=== PATIENT | female | born 2000 | race Caucasian/White ===

== ENCOUNTER 2022-08-23 14:41 | Emergency (ER) | payer OTHER, SELFPAY ==
[2022-08-23 14:47] VITALS: BP 112/91; PULSE 72; RESP 18; TEMP 37.1; O2SAT 97; BMI 31.5
--- NOTE | 2022-08-23 15:39 | CRLHL7_ITS ---
For Patients: As a result of the Century Cures Act, medical imaging exams and procedure reports are released immediately into your electronic medical record. You may view this report before your referring provider. If you have questions, please contact your health care provider. INDICATION: PRESYNCOPE TECHNIQUE: Chest 1 view. COMPARISON: None. FINDINGS: Cardiovascular and mediastinum: Heart size and vasculature are normal in caliber and appearance. Mediastinum is within normal limits. Lungs and pleural space: Lungs are clear. No sign of infiltrate or mass. No sign of pleural effusion. No pneumothorax. Bones and soft tissues: No significant findings. IMPRESSION: Unremarkable chest. Dictated by: Tamir Fajardo MD @ 08/23/2022 16:20:28 (Electronically Signed)
[2022-08-23 15:54] LABS: Appearance Urine Clear (Clear); Bilirubin Urine Negative (Negative); Blood Urine Negative (Negative); Color Urine Yellow (Yellow); Glucose Urine Negative (Negative); Ketones Urine Negative (Negative); Leukocyte Esterase Urine Negative (Negative); Nitrite Urine Negative (Negative); Protein Urine Negative (Negative); Urobilinogen Urine 0.2 (0.2-1.0); pH Urine 7.5 (5.0-8.5)
--- NOTE | 2022-08-23 15:57 | ED.GENADULT ---
HPI - General Adult General Chief complaint: Dizziness/Vertigo Stated complaint: Dizzy Feeling Faint Time Seen by Provider: 08/23/22 14:43 History of Present Illness HPI narrative: 22-year-old young woman presenting to the emergency department with concern of near syncope. She today was trying to participate in a theater production and became somewhat lightheaded, was stumbling and had trouble articulating. Further has had a headache to some degree over the last couple of days. Notes herself to have a history of ?migraines?. This has never been formally diagnosed as migraine though mother has migraines. She does not describe scotoma. Headaches can be variable. She does not wake regularly with headaches. No discoordination typically. More lightheaded over the last couple of days just feeling generally unwell had to skip some classes. Having trouble focusing. She has found herself going to the bathroom on multiple occasions thinking that she needs to have a bowel movement defecating maybe only a small amount of diarrhea or loose stool. This is often accompanied by nausea as well. Triggered also by eating or drinking. In mid 2020 she went to a [place] where had forgotten to take ADD medications in the form of Concerta. Did drink alcohol. Woke with a terrible hangover. Struggled with GI symptoms around that time as well restarting Concerta resulted in worsening of the symptoms. Then in July of 2021 experienced COVID with predominant GI symptoms. She has never vomited with any of this but apparently had a good deal of diarrhea. Has never felt quite normal since. She has presumed some degree of anxiety potentially related and has attended talk therapy but increasing concerned now with exacerbation as above. no fam hx of dysrhythmia or sudden cardiac , denies fam hx of inflammatory bowel disorders Related Data Allergies Allergy/AdvReac Type Severity Reaction Status Date / Time No Known Drug Allergies Allergy Verified 08/23/22 14:47 Review of Systems Status of ROS: Reports: 10 or more systems reviewed and unremarkable except as noted in History and below [facility] PFS Social History Smoking Status: Never smoker Do you use any of these nicotine containing products: None Second hand tobacco smoke exposure: Yes How often do you have a drink containing alcohol: never How often do you have six or more drinks on one occasion: Never AUDIT-C Alcohol total score: 0 Non-prescribed substance use: denies use service: No Exam Narrative: Exam Narrative: Very pleasant. thoughtful. carefully and casually groomed. tearful. head atraumatic.observed to be moving more slowly but without evidence of discoordination. cn 2-12 appear to be intack. pupils equal and brisk. no nystagmus evident. oropharynx a little sticky. neck supple with strong and equal carotid pulse. lungs are clear. abdomen overweight, nt. well-perfused peripherally without edema and extremities appear to be with good strength and without sensory deficits. skin is warm and dry without evidence of rash. Const: Vital Signs, click to edit/add: Vital Signs - 24 hr 08/23/22 14:47 08/23/22 18:19 Temperature 98.7 F 98.0 F Pulse Rate [Pulse Oximeter] 72 69 Respiratory Rate 18 16 Blood Pressure [Le ft Upper Arm] 112/91 H Pulse Oximetry 97 98 Oxygen Delivery Me thod Room Air Room Air Documenting provider has reviewed patient's vital signs: yes Course Vital Signs Vital signs: Initial Vital Signs Temperature 98.7 F 08/23/22 14:47 Temperature Source Temporal Artery Scan 08/23/22 14:47 Pulse Rate 72 08/23/22 14:47 Pulse Rhythm 08/23/22 14:47 Respiratory Rate 18 08/23/22 14:47 Blood Pressure 112/91 H 08/23/22 14:47 Blood Pressure Mean 98 08/23/22 14:47 Blood Pressure Position Supine 08/23/22 14:47 Pulse Oximetry 97 08/23/22 14:47 Oxygen Delivery Method 08/23/22 14:47 Vital Signs Temperature 98.7 F 08/23/22 14:47 Pulse Rate 72 08/23/22 14:47 Respiratory Rate 18 08/23/22 14:47 Blood Pressure 112/91 H 08/23/22 14:47 Pulse Oximetry 97 08/23/22 14:47 Oxygen Delivery Method 08/23/22 14:47 Temperature 98.0 F 08/23/22 18:19 Pulse Rate 69 08/23/22 18:19 Respiratory Rate 16 08/23/22 18:19 Blood Pressure 112/91 H 08/23/22 14:47 Pulse Oximetry 98 08/23/22 18:19 Oxygen Delivery Method 08/23/22 18:19 Medical Decision Making MDM Narrative Medical decision making narrative: will evaluate for cardiac or electrolyte/metabolic causes for lightheadedness. tsh and esr with consideration of bowel issues. monitor on quality assurance monitor for potential arrhythmia. i expect all labs to be normal. this is only initial screening. marked episodes of anxiety anticipating blood draw and could not tolerate idea of iv placement. eventually able to collect blood. cxr by my read wnl with normal cardiac [place]. orthostatics were normal and was asymptomatic departed ER prior to resulting of tsh and esr, the latter of which was normal. Lab Data Lab results reviewed: Yes I reviewed the patient's lab results Labs: Lab Results 08/23/22 08/23/22 08/23/22 Range/Units 15:38 16:16 17:52 WBC 9.00 (4.50-11.00) K/uL RBC 4.56 (4.00-5.20) m/uL Hgb 12.2 (12.0-16.0) gm/dL Hct 37.1 (33.0-51.0) % MCV 81 (80-100) fL MCH 27 (26-34) pg MCHC 33 (32-36) gm/dL RDW Coeff of Estefany 13.8 (11.5-15.5) % Plt Count 384 (140-440) K/uL Neut % (Auto) 68.0 (42.0-72.0) % Lymph % (Auto) 25.2 (20-44) % [place] % (Auto) 6.3 (0.0-11.0) % Eos % (Auto) 0.1 (0.0-7.0) % Baso % (Auto) 0.3 (0.0-3.0) % Neut # (Auto) 6.11 (1.7-7.0) K/uL Lymph # (Auto) 2.27 (0.90-2.90) K/uL [place] # (Auto) 0.60 (0.00-0.90) K/UL Eos # (Auto) 0.01 (0.00-0.50) K/uL Baso # (Auto) 0.03 (0.00-0.30) K/uL ESR (2-20) mm/hr Total Bilirubin 0.5 (0.1-1.5) mg/dL Direct Bilirubin 0.2 (0.0-0.5) mg/dL AST 21 (12-35) U/L ALT 20 (4-35) U/L Alkaline Phosphatase 96 (40-150) U/L Troponin I < 0.01 L (0.01-0.04) ng/mL C-Reactive Protein 0.6 (0.5-1.0) mg/dL NT-Pro-B Natriuret Pep 26 pg/mL Total Protein 8.2 (6.0-8.3) g/dL Albumin 4.9 (3.3-5.0) g/dL Lipase 92 (23-300) U/L TSH (0.270-4.20) uIU/mL HCG, Qual Negative (Negative) Urine Color Yellow (Yellow) Urine Appearance Clear (Clear) Urine pH 7.5 (5.0-8.5) Ur Specific [place] 1.010 (1.000-1.030) Urine Protein Negative (Negative) Urine Glucose (UA) Negative (Negative) Urine Ketones Negative (Negative) Urine Blood Negative (Negative) Urine Nitrite Negative (Negative) Urine Bilirubin Negative (Negative) Urine Urobilinogen 0.2 (0.2-1.0) Ur Leukocyte Esterase Negative (Negative) Urine RBC 0-2 (0-2) Urine WBC 0-2 (0-5) Ur Squamous Epith Cells None (None-Few) Urine Bacteria None (None) 08/23/22 08/23/22 Range/Units 17:52 18:18 WBC (4.50-11.00) K/uL RBC (4.00-5.20) m/uL Hgb (12.0-16.0) gm/dL Hct (33.0-51.0) % MCV (80-100) fL MCH (26-34) pg MCHC (32-36) gm/dL RDW Coeff of Estefany (11.5-15.5) % Plt Count (140-440) K/uL Neut % (Auto) (42.0-72.0) % Lymph % (Auto) (20-44) % [place] % (Auto) (0.0-11.0) % Eos % (Auto) (0.0-7.0) % Baso % (Auto) (0.0-3.0) % Neut # (Auto) (1.7-7.0) K/uL Lymph # (Auto) (0.90-2.90) K/uL [place] # (Auto) (0.00-0.90) K/UL Eos # (Auto) (0.00-0.50) K/uL Baso # (Auto) (0.00-0.30) K/uL ESR 16 (2-20) mm/hr Total Bilirubin (0.1-1.5) mg/dL Direct Bilirubin (0.0-0.5) mg/dL AST (12-35) U/L ALT (4-35) U/L Alkaline Phosphatase (40-150) U/L Troponin I (0.01-0.04) ng/mL C-Reactive Protein (0.5-1.0) mg/dL NT-Pro-B Natriuret Pep pg/mL Total Protein (6.0-8.3) g/dL Albumin (3.3-5.0) g/dL Lipase (23-300) U/L TSH 0.823 (0.270-4.20) uIU/mL HCG, Qual (Negative) Urine Color (Yellow) Urine Appearance (Clear) Urine pH (5.0-8.5) Ur Specific [place] (1.000-1.030) Urine Protein (Negative) Urine Glucose (UA) (Negative) Urine Ketones (Negative) Urine Blood (Negative) Urine Nitrite (Negative) Urine Bilirubin (Negative) Urine Urobilinogen (0.2-1.0) Ur Leukocyte Esterase (Negative) Urine RBC (0-2) Urine WBC (0-5) Ur Squamous Epith Cells (None-Few) Urine Bacteria (None) ECG Data Attestation: I personally reviewed and interpreted this ECG as follows: (Normal sinus rate of 70. Sinus arrhythmia) Discharge Plan Discharge Clinical Impression: Anxiety, Pre-syncope, Irritable bowel Patient Disposition: Home, Self-Care Condition: Improved Additional Instructions: As I said I think you're safe. Focus on staying well hydrated though it seems like you might be doing that. I do think that you would benefit from a little heart pumping exercise daily. Try to get quality and regular sleep. Begin keeping a diet diary noting everything you eat and drink over a period of a few weeks and any symptoms you might have that day. Might also include the degree of stress you're feeling from other sources. I would follow up in primary care or with Gastroenterology for next level of workup. Okay to return for worsening lightheadedness, shortness of breath, chest pain, increasing abdominal pain. Might possibly benefit also from probiotic supplementation or digestive enzymes like Rene Bio-Gest (I have no personal stake :) Follow Up/Referrals: Provider,Not a Local [Primary Care Provider] - Stand Alone Forms: [employer] Info Instructions
[2022-08-23 16:06] LABS: RBC Urine 0-2 (0-2); WBC Urine 0-2 (0-5)
--- NOTE | 2022-08-23 17:18 | PC.NURSE ---
pt refused lab/blood draw. tearful and saying I felt really tired and exhausted, anxious.
[2022-08-23 18:02] LABS: Basophils Absolute Auto 0.03 K/uL (0.00-0.30); Basophils Percent Auto 0.3 % (0.0-3.0); Eosinophils Absolute Auto 0.01 K/uL (0.00-0.50); Eosinophils Percent Auto 0.1 % (0.0-7.0); Hematocrit 37.1 % (33.0-51.0); Hemoglobin* 12.2 gm/dL (12.0-16.0); Immature Granulocytes Abs Auto 0.01 K/uL (0.00-0.30); Immature Granulocytes Pct Auto 0.1 %; Lymphocytes Absolute Auto 2.27 K/uL (0.90-2.90); Lymphocytes Percent Auto 25.2 % (20-44); Mean Corpuscular HGB Conc 33 gm/dL (32-36); Mean Corpuscular Hemoglobin 27 pg (26-34); Mean Corpuscular Volume 81 fL (80-100); Monocytes Percent Auto 6.3 % (0.0-11.0); Neutrophils Absolute Auto 6.11 K/uL (1.7-7.0); Platelet Count* 384 K/uL (140-440); RDW Coefficient of Variation % 13.8 % (11.5-15.5); Red Blood Count 4.56 m/uL (4.00-5.20)
[2022-08-23 18:11] LABS: Slide Review Reflex No
[2022-08-23 18:19] VITALS: PULSE 69; RESP 16; TEMP 36.7; O2SAT 98
[2022-08-23 18:21] LABS: Albumin* 4.9 g/dL (3.3-5.0)
[2022-08-23 18:24] LABS: Alkaline Phosphatase* 96 U/L (40-150); Aspartate Amino Transferase* 21 U/L (12-35); Bilirubin Direct* 0.2 mg/dL (0.0-0.5); Bilirubin Total* 0.5 mg/dL (0.1-1.5); Lipase* 92 U/L (23-300); Total Protein* 8.2 g/dL (6.0-8.3)
[2022-08-23 18:25] LABS: Alanine Aminotransferase* 20 U/L (4-35)
[2022-08-23 18:27] LABS: C Reactive Protein* 0.6 mg/dL (0.5-1.0)
[2022-08-23 18:36] LABS: NT Pro B Type NatriureticPept* 26 pg/mL
[2022-08-23 18:49] LABS: Troponin I* < 0.01 ng/mL (0.01-0.04)
[2022-08-23 18:52] LABS: Erythrocyte SedimentationRate* 16 mm/hr (2-20)
[2022-08-23 18:58] LABS: HCG Qualitative* Negative (Negative)
[2022-08-25 13:10] LABS: Thyroid Stimulating Hormone* 0.823 uIU/mL (0.270-4.20)
== END 2022-08-23 19:02 | disposition home or self-care (01) ==
PROVIDERS: Emergency Provider Family Medicine
DX: F41.9 Anxiety disorder, unspecified (principal); R55 Syncope and collapse; K58.9 Irritable bowel syndrome, unspecified
CPT/HCPCS: 36415; 71045; 80076; 81001; 83690; 83880; 84443; 84484; 84703; 85025; 85651; 86140; 93005; 99284; 99285